=== PATIENT | female | born 1970 | race Caucasian/White ===

== ENCOUNTER 2023-04-05 11:18 | Outpatient (AMB) | payer OTHER, SELFPAY ==
--- NOTE | 2023-04-05 12:11 | MHC.OFFWIV ---
Intake Vital Signs 04/05/23 12:18 Height 5 ft 1 in Weight 114 lb BMI 21.5 BP 126/72 Blood Pressure Location Rt brachial Position Sitting Pulse 89 Pulse Source Pulse Oximeter Temp 97.3 F Temp Source Temporal Artery Scan Pulse Oximetry (%) 100 Oxygen Delivery Method Room Air Intake Visit Reasons: EP, rash on palm of right hand Intake Note: Pt is here c/o rash on right hand palm Patient Tobacco Use Status: Never used Tobacco Allergies amoxicillin [AMOXICILLIN] Allergy (Unknown, Unverified 04/05/23 12:16) SEIZURE penicillin V Allergy (Unknown, Verified 04/05/23 12:16) unknown Penicillins [PCN] Allergy (Unknown, Unverified 04/05/23 12:16) SEIZURE Sulfa (Sulfonamide Antibiotics) [SULFA(SULFONAMIDE ANTIBIOTICS)] Allergy (Unknown, Unverified 04/05/23 12:16) MARY SYNDROME Do you need a note to return to daycare/school/sports/work: No HPI HPI Comments History of Present Illness Details This is a 52-year-old female who presents to the office complaining of a painful rash on her right palm. Patient states she has a history of eczema, but this does not appear similar to her prior eczema rashes. She states this rash has been going on for several weeks. She denies any new or abnormal exposures to creams, lotions, soaps, or detergents. She denies any environmental exposures. She denies any fevers or chills. She is otherwise feeling well. [facility] Social History Patient Tobacco Use Status: Never used Tobacco Review of Systems Const All systems reviewed & are unremarkable except as noted in HPI and below Reports no additional complaints Eyes Reports no additional complaints ENT Reports no additional complaints Card Reports no additional complaints Resp Reports no additional complaints GI Reports no additional complaints Reports no additional complaints Musc Reports no additional complaints Skin/Breast Reports system reviewed and no additional complaints, except as documented Neuro Reports no additional complaints Psych Reports no additional complaints Endo Reports no additional complaints Chandan/Lymph Reports no additional complaints Aller/Immun Reports no additional complaints Physical Exam Vital Signs: Last Vital Signs Temp 97.3 F 04/05/23 12:18 Pulse 89 04/05/23 12:18 BP 126/72 04/05/23 12:18 Pulse Ox 100 04/05/23 12:18 Oxygen Delivery Method Room Air 04/05/23 12:18 BMI result Body Mass Index 21.5 Const Other: Vital signs reviewed. Constitutional: Non-toxic appearing. No acute distress. Well-developed and well-nourished. HEENT: Normocephalic and atraumatic. Tympanic membranes without erythema, edema, or bulging bilaterally. External auditory canals without erythema or edema bilaterally. Moist mucous membranes. No pharyngeal erythema or exudates. Skin: There are several areas of an erythematous maculopapular rash with scattered vesicles on the right palm. Neck: Full and painless range of motion. No cervical lymphadenopathy. Cardio: Regular rate. No lower extremity edema. No JVD. Pulmonary: No respiratory distress. No accessory muscle usage. Gastrointestinal: Soft, nontender, and nondistended in all 4 quadrants. Musculoskeletal: Normal range of motion in joints throughout the body. No deformity or other signs of injury. Neuro: Alert and oriented x4. Cranial nerves 2-12 grossly intact. No focal deficits appreciated. Psych: Normal mood and affect. Assessment & Plan Assessment & Plan (1) Dyshidrotic eczema: Code(s): L30.1 - Dyshidrosis [pompholyx] Plan: This is a 52-year-old female presenting to the office complaining of a painful and pruritic rash on her right palm. On physical examination, she has several areas of an erythematous maculopapular rash with scattered vesicles. Her physical exam is most consistent with a dyshidrotic eczema. Patient was sent home on high potency topical steroid cream with clobetasol 0.5% twice daily to the area. she was encouraged to call her primary care physician for a dermatology referral. Patient verbalizes her understanding and she is in agreement with the plan. Medications: New clobetasol 0.05% 1 appl topical BID 2 weeks 15 grams 0RF Coding Level of Care Code New Pt Level 3 (14113) Diagnoses Dyshidrotic eczema L30.1
[2023-04-05 12:18] VITALS: BP 126/72; PULSE 89; TEMP 36.3; O2SAT 100; BMI 21.5
== END 2023-04-05 12:51 | disposition home or self-care (01) ==
PROVIDERS: Visit Provider Physician Assistant Medical
DX: L30.1 Dyshidrosis [pompholyx] (principal)
CPT/HCPCS: 99203

== ENCOUNTER 2024-01-24 11:06 | Outpatient (REF) | payer OTHER, SELFPAY ==
[2024-01-24 13:11] LABS: MANUAL DIFF FLAG NO
[2024-01-24 13:45] LABS: Basophils Absolute Auto 0.1 X10*3/uL (0.0-0.2); Basophils Percent Auto 1.2 % (0-2); Eosinophils Absolute Auto 0.2 X10*3/uL (0.0-0.4); Eosinophils Percent Auto 3.3 % (0-4); Hematocrit 41.8 % (37.0-47.0); Imm Gran Abs Auto 0.02 X10*3/uL (0.00-0.03); Imm Gran Pct Auto 0.4 % (0.0-0.4); Lymphocytes Absolute Auto 1.5 X10*3/uL (1.2-4.9); Lymphocytes Percent Auto 28.7 % (20-40); Mean Corpuscular HGB Conc 33.5 g/dl (31.0-35.0); Mean Corpuscular Hemoglobin 29.5 pg (27.0-33.0); Mean Corpuscular Volume 88.2 fL (80.0-98.0); Mean Platelet Volume 11.8 fL (9.4-12.3); Monocytes Absolute Auto 0.3 X10*3/uL (0.1-1.2); Monocytes Percent Auto 6.4 % (2-11); Neutrophils Absolute Auto 3.1 x10*3/uL (2.0-8.3); Platelet Count 210 X10*3/uL (160-400); Red Blood Count 4.74 X10*6/uL (4.20-5.50); Red Cell Distribution Width 11.9 % (11.0-16.0); White Blood Count 5.2 X10*3/uL (4.8-10.8)
[2024-01-24 14:20] LABS: Rheumatoid Factor < 13.0 IU/mL (<15.0)
[2024-01-24 14:25] LABS: Alanine Aminotransferase 10 U/L (0-31); Albumin Level 4.2 g/dL (3.5-5.0); Alkaline Phosphatase 50 U/L (39-117); Anion Gap 9 (12-20); Aspartate Amino Transferase 17 U/L (5-31); Bilirubin Total 0.3 mg/dL (0.0-1.0); Blood Urea Nitrogen 14 mg/dL (9-16); C Reactive Protein < 0.10 mg/dL (< or = 0.50); Calcium 9.4 mg/dL (8.4-10.2); Carbon Dioxide 31 mmol/L (22-29); Chloride 105 mmol/L (96-108); Estimated Glomerular Filt Rate > 60; Glucose Random 91 mg/dL (60-115); Potassium 4.6 mmol/L (3.3-5.1); Sodium 140 mmol/L (135-145); Total Protein 6.9 g/dL (6.5-8.0)
[2024-01-24 14:27] LABS: Erythrocyte Sedimentation Rate 7 MM/HR (0-20)
[2024-01-24 15:13] LABS: Appearance Urine Clear; Color Urine Yellow; Glucose Urine UA Negative (Negative); Leukocyte Esterase Urine Negative (Negative); Nitrite Urine Negative (Negative); Specific Gravity - Urine 1.015 (1.005-1.025); Urine Blood Negative (Negative); Urine Ketones Negative (Negative); Urine Protein Negative (Neg-Trace)
[2024-01-24 15:19] LABS: Bacteria Urine None Seen (None Seen); Hyaline Casts Urine 0-2 /LPF (0-2); RBC Urine 0-2 /HPF (0-2); Squamous Epithelial Cell Urine 0-2 /HPF (0-2); WBC Urine 0-5 /HPF (0-5)
[2024-01-24 15:26] LABS: Creatinine Urine 82.32 mg/dL; Total Protein Urine Random 8 mg/dL (<12)
[2024-01-24 15:49] LABS: HBS Num1 137.45 mIU/mL (0-7.99); HBc Num1 0.08 S/CO (0.00-0.79); HBsAGNum1 0.34 S/CO (0.00-0.99); Hepatitis A Antibody IgM 0.29 Index (0-0.79); Hepatitis B Core Antibody Nonreactive (Nonreactive); Hepatitis B Surface Antigen Negative (Negative); ~HepC Num1 0.16 S/CO (0.00-0.79); ~Hepatitis A Antibody IgM Nonreactive (Nonreactive); ~Hepatitis B Surface Antibody REACTIVE (Nonreactive); ~Hepatitis C Antibody Nonreactive (Nonreactive)
[2024-01-27 10:22] LABS: Complement C3 124 mg/dL (83-193)
[2024-01-27 20:23] LABS: Anti DNA DS Antibody 2 IU/mL; Antibody to SS-A Antigen <1.0 NEG AI (<1.0 NEG); Antibody to SS-B Antigen <1.0 NEG AI (<1.0 NEG); SM/Ribonucleoprotein Ab <1.0 NEG AI (<1.0 NEG); Smith Protein <1.0 NEG AI (<1.0 NEG)
[2024-01-27 22:18] LABS: TS Negative Control Passed; TS Panel A 0; TS Panel B 0; TS Positive Control Passed; TSpotTB Negative (Negative)
[2024-01-27 22:37] LABS: Prot Elec - Albumin 4.2 g/dL (3.8-4.8); Prot Elec - Alpha1 0.3 g/dL (0.2-0.3); Prot Elec - Alpha2 0.6 g/dL (0.5-0.9); Prot Elec - Beta 1 0.4 g/dL (0.4-0.6); Prot Elec - Beta 2 0.3 g/dL (0.2-0.5); Prot Elec - Gamma 0.8 g/dL (0.8-1.7); Prot Elec - Total Protein 6.6 g/dL (6.1-8.1)
[2024-01-28 17:13] LABS: Cyclic Citrullinated Peptide <16 UNITS
[2024-01-28 18:22] LABS: IgA 217 mg/dL (47-310); IgG 838 mg/dL (600-1640); IgM 155 mg/dL (50-300)
[2024-01-29 07:29] LABS: Anti Nuclear Antibody Screen POSITIVE (NEGATIVE); Anti Nuclear Antibody Titer 1:40 titer
[2024-01-30 05:45] LABS: DNAds, Crithidia Antibody Negative (Negative)
[2024-02-02 18:09] LABS: Centromere Protein A Ab <11 SI (<11); Centromere Protein B Ab <11 SI (<11); Fibrillarin Ab <11 SI (<11); PM SCL 100 Ab <11 SI (<11); PM SCL 75 Ab <11 SI (<11); RNA Polymerase III RP11 Ab <11 SI (<11); RNA Polymerase III RP155 Ab <11 SI (<11); SCL-70 Extractable Nuclear Ab <11 SI (<11); Th-To Ab <11 SI (<11); U1 SNRNP RNP 70KD <11 SI (<11); U1 SNRNP RNP A <11 SI (<11); U1 SNRNP RNP C <11 SI (<11)
== END 2024-01-24 11:07 | disposition home or self-care (01) ==
LOC: HO.LAB 11:06
PROVIDERS: PCP Internal Medicine; Visit Provider Student in an Organized Health Care Education/Training Program
DX: M35.01 Sjogren syndrome with keratoconjunctivitis (principal); M32.9 Systemic lupus erythematosus, unspecified; M06.9 Rheumatoid arthritis, unspecified; Z11.59 Encounter for screening for other viral diseases; Z11.7 Encounter for testing for latent tuberculosis infection; M34.9 Systemic sclerosis, unspecified
CPT/HCPCS: 36415; 80053; 81001; 82570; 82784; 84156; 84165; 84182; 85025; 85652; 86038; 86039; 86140; 86160; 86200; 86225; 86235; 86255; 86334; 86431; 86481; 86704; 86706; 86709; 86803; 87340; 99202

== ENCOUNTER 2024-01-24 11:06 | Outpatient (AMB) | payer OTHER, SELFPAY ==
--- NOTE | 2024-01-24 11:17 | A.OFFVIS_ITS ---
Vital Signs 01/24/24 11:32 Height 5 ft 1 in Weight 124 lb 1.924 oz BMI 23.4 BP 115/72 Blood Pressure Location Lt brachial Position Sitting Pulse 80 Pulse Source Pulse Oximeter Pulse Oximetry (%) 96 Oxygen Delivery Method Room Air Intake Visit Reasons: Sjogren's Intake Note: Patient presents for Sjogren's. Feel pain everywhere. 25 plus years. No medication work. Allergies amoxicillin [AMOXICILLIN] Allergy (Unknown, Verified 01/24/24 11:22) SEIZURE penicillin V Allergy (Unknown, Verified 01/24/24 11:22) unknown Penicillins [PCN] Allergy (Unknown, Verified 01/24/24 11:22) SEIZURE Sulfa (Sulfonamide Antibiotics) [SULFA(SULFONAMIDE ANTIBIOTICS)] Allergy (Unknown, Verified 01/24/24 11:22) MARY SYNDROME hydroxychloroquine Allergy (Verified 01/24/24 11:48) Gastrointestinal Upset paxlovid Allergy (Severe, Uncoded 01/24/24 11:23) Vomiting Medication List - Last Reconciled 01/24/24 by Jose Lynne MD acyclovir 5% 1 appl topical Q4H azelaic acid 15% 1 appl topical BID betamethasone dipropionate 0.05% 1 appl topical BID clonazepam mg PO hydroxyzine HCl 25 mg PO BID ibuprofen 800 mg PO TID loratadine 10 mg PO DAILY mirtazapine 7.5 mg PO BEDTIME paroxetine HCl 40 mg PO DAILY pilocarpine HCl 5 mg PO TID PRN valacyclovir 1,000 mg PO DAILY HPI Comments Details: This is a 53-year-old female who presents for evaluation of Sjogren's. She st ates that around 2005 she started having rashes on her face. She was started on hydroxychloroquine. A gave her GI upset, vomiting, skin rashes. A few years later, she was having dryness of her mouth, eyes, she also stated that she had decreased sweating even under her armpits. At that time she was diagnosed with Sjogren's. She was evaluated by Dr. Martinez. Started on pilocarpine which did help the dryness. She was also on Restasis. Over the years she was diagnosed with rheumatoid arthritis as well. She does not recall any specific treatment for it. She was last evaluated by a elevator examiner and adjuster around 2014. Her main complaint is diffuse pains. She gets intermittent swelling of her joints. She is also complaining of dry mouth, dry eyes. Does not recall any specific treatment for it. She states that she continues to have diffuse pains. She denies any recent skin rashes, weight loss, unexplained fevers. She denies any history of DVT/PE. [facility] Medical History Vitamin D deficiency B12 deficiency Sjogrens syndrome Rheumatoid arthritis PTSD (post-traumatic stress disorder) Lupus Learning disability Fibromyalgia Depression Anxiety ADHD Surgical History H/O breast augmentation H/O: hysterectomy Family History Maternal Grandfather Parkinson disease Rheumatoid arthritis Mother No problems noted. Daughter Rheumatoid arthritis Social History Household Members: Other Housing: House Alcohol intake: never Patient Tobacco Use Status: Never used Tobacco Review of Systems Const Denies fever(s) and Denies weight loss Eyes Reports dry eyes ENT Reports dry mouth Resp Reports no additional complaints Musc Reports arthralgias Physical Exam Vital Signs: Last Vital Signs Pulse 80 01/24/24 11:32 BP 115/72 01/24/24 11:32 Pulse Ox 96 01/24/24 11:32 Oxygen Delivery Method Room Air 01/24/24 11:32 BMI result Body Mass Index 23.4 Const General: cooperative, healthy appearing and comfortable Nutritional Appearance: average body habitus Orientation/consciousness: patient oriented x3 Limitations: no limitations HEENT Other: Dry mouth Subtle telangiectasia on lower lip Resp Effort & Inspection: normal respiratory effort and able to speak in complete sentences Auscultation: clear to auscultation bilaterally Cardio Rate: regular rate Rhythm: regular rhythm Skin Other: Very subtle rashes on forehead Neuro General: patient oriented x3 Extrem Other: No active synovitis Normal nailfold capillaroscopy Results Reviewed Results Reviewed: US SOFT TISSUE HEAD/NECK Exam Date: 08/13/2023 4:56 PM Ordering Diagnosis: Neck fullness ? EXAM: Ultrasound head/neck soft tissue ? HISTORY: Neck fullness. History of Sjogren's syndrome. ? COMPARISON: None ? FINDINGS: ? Patient delineated the area of bilateral neck fullness in the bilateral submandibular regions. Submandibular glands appear within normal limits for size and are homogeneous. No focal submandibular lesion identified. No glandular calcifications. No lymph nodes identified. ? IMPRESSION IMPRESSION: ? No sonographic abnormality identified in the areas of neck fullness. Assessment & Plan Assessment & Plan (1) Sjogrens syndrome: Code(s): M35.00 - Sjogren syndrome, unspecified Category: Medical Qualifiers: Sjogren organ or system involvement: keratoconjunctivitis Qualified Code(s): M35.01 - Sjogren syndrome with keratoconjunctivitis Plan: This is a 53-year-old female previously diagnosed with SLE, Sjogren's and RA who presents for follow-up. She has not seen a elevator examiner and adjuster for then 7 years. On exam she has dry mouth. I will order comprehensive serology to better understand her underlying autoimmune rheumatic disease. For dryness, start pilocarpine. Discussed Risks and benefits of it. Advised patient to use [id number] Biotene mouthwash/spray. Use Biotene toothpaste Advised patient to establish care with an business office specialist for dry eyes Follow-up in 6-8 weeks Plan I spent 48 minutes reviewing patient's chart, evaluating patient, ordering diagnostic workup, counseling patient and documenting in the chart Orders: Orders ENIO Reflex Titer and Pattern Today M32.9 - Systemic lupus erythematosus, unspecified Anti DNA DS Antibody Today M32.9 - Systemic lupus erythematosus, unspecified Complement C4 Today M32.9 - Systemic lupus erythematosus, unspecified Comprehensive Met. Panel Today M32.9 - Systemic lupus erythematosus, unspecified Rheumatoid Factor Today M06.9 - Rheumatoid arthritis, unspecified Scleroderma 12 Panel Today M34.9 - Systemic sclerosis, unspecified Anti Extractable Nuclear Ag Today M32.9 - Systemic lupus erythematosus, unspecified Complement C3 Today M32.9 - Systemic lupus erythematosus, unspecified C Reactive Protein Today M32.9 - Systemic lupus erythematosus, unspecified DNA Double Stranded-Crithidia Today M32.9 - Systemic lupus erythematosus, unspecified Erythrocyte Sedimentation Rate Today M32.9 - Systemic lupus erythematosus, unspecified Protein Creatinine Ratio, Ur Today M32.9 - Systemic lupus erythematosus, unspecified Sjogren's Antibodies Today M32.9 - Systemic lupus erythematosus, unspecified UA w Microscopic Today M32.9 - Systemic lupus erythematosus, unspecified Complete Blood Count Auto Diff Today M32.9 - Systemic lupus erythematosus, unspecified Hepatitis A,B,C Profile Today Z11.59 - Encounter for screening for other viral diseases Immunofixation Pnl, Serum Today M32.9 - Systemic lupus erythematosus, unspecified Protein Electrophoresis, Serum Today M32.9 - Systemic lupus erythematosus, unspecified T Spot TB Today Z11.7 - Encounter for testing for latent tuberculosis infection Cyclic Citrullinated Peptide Today M06.9 - Rheumatoid arthritis, unspecified Medications: New pilocarpine HCl 5 mg PO TID PRN 90 tabs 1RF dryness Coding Level of Care Code New Pt Level 4 (95172) Diagnoses Sjogren's syndrome with keratoconjunctivitis sicca M35.01 Sjogren organ or system involvement: keratoconjunctivitis
[2024-01-24 11:32] VITALS: BP 115/72; PULSE 80; O2SAT 96; BMI 23.4
== END 2024-01-24 12:01 | disposition home or self-care (01) ==
PROVIDERS: PCP Internal Medicine; Visit Provider Student in an Organized Health Care Education/Training Program
DX: M35.01 Sjogren syndrome with keratoconjunctivitis (principal)
CPT/HCPCS: 99204

== ENCOUNTER 2024-06-02 14:26 | Outpatient (AMB) | payer OTHER, SELFPAY ==
[2024-06-02 15:07] VITALS: BP 114/76; PULSE 93; TEMP 37.4; O2SAT 97
--- NOTE | 2024-06-02 15:07 | MHC.OFFWIV ---
Intake Vital Signs 06/02/24 15:07 Weight 121 lb BP 114/76 Blood Pressure Location Rt brachial Position Sitting Pulse 93 Pulse Source Pulse Oximeter Temp 99.4 F Temp Source Oral Pulse Oximetry (%) 97 Oxygen Delivery Method Room Air Intake Visit Reasons: EP-cough, chest congestion, ribcage pain, sob Intake Note: Patient here for cough that has been present for about 3 weeks Patient Tobacco Use Status: Never used Tobacco Allergies amoxicillin [AMOXICILLIN] Allergy (Unknown, Verified 06/02/24 15:08) SEIZURE penicillin V Allergy (Unknown, Verified 06/02/24 15:08) unknown Penicillins [PCN] Allergy (Unknown, Verified 06/02/24 15:08) SEIZURE Sulfa (Sulfonamide Antibiotics) [SULFA(SULFONAMIDE ANTIBIOTICS)] Allergy (Unknown, Verified 06/02/24 15:08) MARY SYNDROME hydroxychloroquine Allergy (Verified 06/02/24 15:08) Gastrointestinal Upset paxlovid Allergy (Severe, Uncoded 06/02/24 15:08) Vomiting HPI HPI Comments History of Present Illness Details This is a 53-year-old female with a past medical history of lupus, anxiety and depression presenting for evaluation of a cough, headache and decreased appetite that she has had for the past 3 weeks. 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 Patient states that both her boyfriend and her boyfriend's mother have had similar symptoms. Patient states she has poor sleep secondary to her cough however has been taking hydroxyzine at bedtime for relief. Patient has also been using an [id number] cough syrup as needed. She denies having any overt fevers, chest pain, shortness breath, nausea, vomiting or diarrhea. [facility] Medical History (Updated 06/02/24 @ 15:48 by Jessi Kathleen PA-C) Rheumatoid arthritis Vitamin D deficiency B12 deficiency Sjogrens syndrome PTSD (post-traumatic stress disorder) Lupus Learning disability Fibromyalgia Depression Anxiety ADHD Surgical History H/O breast augmentation H/O: hysterectomy Family History Maternal Grandfather Parkinson disease Rheumatoid arthritis Mother No problems noted. Daughter Rheumatoid arthritis Social History Household Members: Other Housing: House Alcohol intake: never Patient Tobacco Use Status: Never used Tobacco Review of Systems Const All systems reviewed & are unremarkable except as noted in HPI and below Reports body aches, Denies chills, Reports fatigue, Denies fever(s), Reports headache(s), Reports lethargy, Reports poor appetite and Reports weakness Eyes Reports no additional complaints ENT Reports no additional complaints and Reports headache(s) Card Denies chest pain, Denies irregular heart rhythm and Denies dyspnea Resp Denies chest congestion, Reports cough, Denies dyspnea and Denies wheezing GI Denies no additional complaints, Denies diarrhea, Denies nausea and Denies vomiting Reports no additional complaints Musc Reports no additional complaints Skin/Breast Reports as per HPI Neuro Reports no additional complaints, Reports headache(s) and Reports weakness Psych Reports no additional complaints Endo Reports no additional complaints and Reports fatigue Chandan/Lymph Reports no additional complaints Aller/Immun Reports no additional complaints and Denies wheezing Physical Exam Vital Signs: Last Vital Signs Temp 99.4 F 06/02/24 15:07 Pulse 93 06/02/24 15:07 BP 114/76 06/02/24 15:07 Pulse Ox 97 06/02/24 15:07 Oxygen Delivery Method Room Air 06/02/24 15:07 Const General: cooperative, comfortable, well developed, alert, awake, Physically active and tired appearing; No acute distress Nutritional Appearance: average body habitus Orientation/consciousness: patient oriented x3 Limitations: no limitations HEENT Head: Yes normal to inspection and Yes normocephalic Ears: hearing grossly normal bilaterally, external ears normal, TM's normal bilaterally and EAC's normal General nose exam: Normal external nose present Face and sinus: Yes normal facial exam and Yes sinuses nontender Mouth: Normal oral and palatal mucosa present Throat: Yes posterior oropharynx normal and No postnasal drainage Eyes General: appearance normal, both eyes and all related structures Conjunctivae: conjunctivae normal EOM: EOMs intact bilaterally Neck Lymphatic: no lymphadenopathy noted Resp Effort & Inspection: normal respiratory effort, able to speak in complete sentences, normal respiratory pattern, no audible wheezes, no cough, no nasal flaring and not tachypneic Auscultation: clear to auscultation bilaterally Cardio Rate: regular rate Rhythm: regular rhythm Skin General skin exam: no rashes or lesions noted Neuro General: patient oriented x3 Psych Appearance: grossly normal Mental Status: mental status grossly normal Insight: Good insight present (Psych) Judgement: Good judgement present (Psych) Assessment & Plan Assessment & Plan (1) Acute upper respiratory infection: Comment: SARS panel ordered and results are pending. Code(s): J06.9 - Acute upper respiratory infection, unspecified Plan: Ibuprofen or Tylenol as needed for discomfort. Mucinex OTC, hot tea with honey and continue hydroxyzine at bedtime as needed. Orders: Orders SARS-CoV2/FLU/RSV Today J06.9 - Acute upper respiratory infection, unspecified Coding Level of Care Code Est Pt Level 3 (56772) Diagnoses Acute upper respiratory infection J06.9 Time Spent (min) 20
--- OUTSIDE RECORDS SUMMARY | 2024-06-02 15:19 | XMS_ITS | Clinical Summary ---
Author Organization [address] Address [address] [place] [phone] Phone Care Team Providers Care Multicultural Manager Name Role Phone Keiry Sher MD Primary Care Provider [phone] Allergies Active Allergy Reactions Criticality Noted Date Comments Amoxicillin 03/20/2017 Nirmatrelvir-Ritonavir Hallucinations Penicillins 03/20/2017 Pilocarpine Other 02/18/2024 Rapid heart beat , Sulfa (Sulfonamide Antibiotics) 03/20/2017 Medications Medication Sig Dispensed Refills Start Date End Date Status valACYclovir (VALTREX) 1 gram tablet Take 1 tablet (1,000 mg total) by mouth 1 (one) time each day. TAKE 1 TABLET BY MOUTH DAILY FOR 5 DAYS AT ONSET OF SYMPTOMS 60 tablet 03/25/2024 Active acyclovir (ZOVIRAX) 5 % ointment Every 3 hours while awake. 12/03/2023 11/27/2024 Active betamethasone, augmented, (DIPROLENE-AF) 0.05 % cream PLEASE SEE ATTACHED FOR DETAILED DIRECTIONS 07/29/2023 Active calcipotriene (DOVONEX) 0.005 % cream APPLY TWICE DAILY TO THE HANDS NEEDED. CAN MIX WITH BETAMETHASONE. 07/29/2023 Active cholecalciferol (VITAMIN D-3) 25 mcg (1,000 unit) tablet Take 1,000 Units by mouth daily. Active clonazePAM (KlonoPIN) 0.5 mg tablet Take 0.5 mg by mouth 2 times daily. Active diclofenac (VOLTAREN) 1 % topical gel Apply 1 Applicator topically 2 times daily as needed (Heel pain). 02/18/2024 Active hydrOXYzine HCL (ATARAX) 25 mg tablet TAKE 1-2 TABLETS DAILY AT BEDTIME NEEDED FOR INSOMNIA 07/17/2023 Active PARoxetine (PAXIL) 40 mg tablet Take 1 tablet (40 mg total) by mouth 1 (one) time each day in the morning. Active Active Problems Problem Noted Date Diagnosed Date ADHD 12/04/2022 Learning disability 12/04/2022 Overview (03/19/2024): discalcula Anxiety disorder 12/04/2022 PTSD (post-traumatic stress disorder) 12/04/2022 B12 deficiency 12/04/2022 Depression 12/04/2022 Fibromyalgia 12/04/2022 Lupus (systemic lupus erythematosus) 12/04/2022 Rheumatoid arthritis 12/04/2022 Sjogren's syndrome 12/04/2022 Vitamin D deficiency 12/04/2022 Encounters Date Type Department Care Team Description 03/29/2024 Telephone Adult Medicine [address] [phone] Keiry Sher MD Information Requested from Last 3 Months Surgical History Surgery Date Site/Laterality Comments HYSTERECTOMY 04/2020 PROCEDURE: HISTORICAL HYSTERECTOMY; COMMENT: robotic OTHER SURGICAL HISTORY PROCEDURE: HISTORICAL UNSPECIFIED SURGERY; COMMENT: breast augmentation Medical History Medical History Date Comments Anxiety disorder DX:Anxiety diso rder PTSD (post-traumatic stress disorder) DX:PTSD (post-traumatic stress disorder) Depression DX:Depression Adhd DX:ADHD Lupus (systemic lupus erythe matosus) ([facility]) DX:Lupus (systemic lupus sami thematosus) ([facility]) Fibromyalgia DX:Fibromyalgia Sjogren's syndrome ([facility]) DX: Sjogren's syndrome ([facility]) Learning disability DX:Learning disability; COMMENT: discalcula Rheumatoid arthritis ([facility]/HCC) D X:Rheumatoid arthritis ([facility]) Family History Medical History Relation Name Comments Hypertension Brother No Known Problems Father Parkinson's Disease Maternal Grandfather Rheum arthritis Maternal Grandfather Hypertension Mother Other: hyrdocephaly Mother No Known Problems Paternal Grandfather No Known Problems Sister Relation Name Status Comments Brother Daughter Alive Father Maternal Grandfather Mother Paternal Grandfather Paternal Grandmother Sister Social History Tobacco Use Types Packs/Day Years Used Date Smoking Tobacco: Every Day Cigarettes 0.5 43.1 Started: 05/06/1981 Smokeless Tobacco: Never Alcohol Use Standard Drinks/Week Comments Yes 0 (1 standard drink = 0.6 oz pur e alcohol) Sex and Gender Information Value Date Recorded Sex Assigned at Not on file Gender Identity Not on file Sexual Orientation Not on file Job Start Date Occupation Industry Not on file Not on file Not on file Obstetrics History Last Filed Vital Signs Vital Sign Reading Time Taken Comments Blood Pressure 104/64 03/02/2024 2:49 PM EDT Pulse 80 03/02/2024 2:49 PM EDT Temperature - - Respiratory Rate - - Oxygen Saturation - - Inhaled Oxygen Concentration - - Weight 56.7 kg (125 lb) 03/02/2024 2:49 PM EDT Height 157.5 cm (5' 2 ) 03/02/2024 2:49 PM EDT Body Mass Index 22.86 03/02/2024 2:49 PM EDT Plan of Treatment Upcoming Encounters Date Type Department Care Team (Late st Contact Info) Description 06/09/2024 1:30 PM EST Consult Urogynecology [address] [phone] Marissa Cowan MD [address] [place] [address] [address] [place] [address] Health Maintenance Due Date Last Done Comments Breast Cancer Screening 1970 Pneumococcal Vaccine: Pediatrics (0 to 5 Years) and At-Risk Patients (6 to 64 Years) (1 of 2 - PCV) 1977 DTaP,Tdap,and Td Vaccines (1 - Tdap) 1990 Hepatitis B Vaccines (1 of 3 - 19+ 3-dose series) 1990 Cervical Cancer Screening: P ap Smear 03/21/2020 03/21/2017, 03/21/2017 Zoster Vaccines (1 of 2) 2021 Colorectal Cancer Screening: Colonoscopy 04/08/2022 HIV Screening 04/08/2022 Hepatitis C Screening 04/08/2022 Social Influencers of Health Screening 04/08/2022 COVID-19 Vaccine (1 - 2023-2 5 season) 2024 Influenza Vaccine (#1) 2024 Depression Screening 12/01/2024 12/02/2023 Lung Cancer Screening (Low Dose CT) 01/22/2025 01/23/2024, 01/22/2024 Cholesterol Screening (Lipid Panel) 12/05/2027 12/04/2022 HIB Vaccines Aged Out No longer eligi ble based on patient's age to complete this topic HPV Vaccines Aged Out No longer eligi ble based on patient's age to complete this topic Hepatitis A Vaccines Aged Out No long er eligible based on patient's age to complete this topic IPV Vaccines Aged Out No longer eligi ble based on patient's age to complete this topic MMR Vaccines Aged Out No longer eligi ble based on patient's age to complete this topic Meningococcal ACWY Vaccine Aged Out N o longer eligible based on patient's age to complete this topic RSV Immunization Patients Under 20 months Aged Out No longer eligible b ased on patient's age to complete this topic Varicella Vaccines Aged Out No longer eligible based on patient's age to complete this topic Procedures Procedure Name Priority Date/Time Associated Diagnosis Comments CT LUNG SCREENING LOW DOSE Routine 01/23/2024 1:41 PM EDT Encounter for screening for malignant neoplasm of respiratory organs DEPRESSION SCREENING Routine 12/02/2023 LIPID PANEL Routine 12/04/2022 HPV Routine 03/21/2017 from Last 3 Months or Most Recently Relevant to Health Maintenance Results * CT LUNG SCREENING LOW DOSE (01/23/2024 1:41 PM EDT) Anatomical Region Laterality Modality Computed Tomogra phy 01/22/2024 2:06 PM EDT Narrative 01/23/2024 1:41 PM EDT [facility] Diagnostic Imaging Department [address] [place] [address] Patient: ??BECKA JIMENEZ ?/Age/Sex: 1970 - 53 - F Unit#: ??[id number] ? Location/Status: ??SPDICATLS/REG CLI ? Mnemonic/Ordering Site: ??CTLUNGLD/SPCT Ordering Physician: ??PAULA ROBERTS MD CT Lung Screening Low Dose - 01/22/24 - 1416 Report Status:Signed Chest CT, 01/23/2024 12:23 PM. TECHNIQUE: Low-dose CT of the chest without intravenous contrast administration. ??Coronal and sagittal reformats and MIP reconstructions were created. Dose length product: ??112 mGy-cm. HISTORY: LOW DOSE LUNG SCREENING COMPARISON: 03/03/2018. FINDINGS: Lungs/pleura: Central airways are clear and normal in caliber. ??No endobronchial nodule. ??There are a few scattered 1--2 mm calcified and noncalcified pulmonary nodules. ??No suspicious nodule or mass. ??No pleural effusion or pneumothorax. Mediastinum/theron: No mediastinal mass or lymphadenopathy. ??No appreciable hilar lymphadenopathy on limited noncontrast evaluation. Vasculature: Minimal atherosclerotic calcifications. ??Normal caliber pulmonary arteries. Cardiac: Normal. ??No coronary artery calcification. Chest wall: Breast implants. Limited abdomen: Normal. Bones: Mild degenerative changes of the spine. IMPRESSION: Lung RADS 2. ??Guidelines recommend repeat low-dose screening CT in 12 months. Dictating Physician: ??HIRAM GUAJARDO MD Electronically Signed by: ??HIRAM GUAJARDO MD Dic Date/Time: ??01/23/24 1223 Sign date/Time: ??01/23/24 1341 Procedure Note Hiram Guajardo MD - 02/19/2024 [facility] Diagnostic Imaging Department [address] [place] [id number] Patient: BECKA JIMENEZ /Age/Sex: 1970 - 53 - F Unit#: [id number] Location/Status: SPDICATLS/REG CLI Mnemonic/Ordering Site: CTLUNG/SPCT Ordering Physician: PAULA ROBERTS MD CT Lung Screening Low Dose - 01/22/24 - 1416 Report Status:Signed Chest CT, 01/23/2024 12:23 PM. TECHNIQUE: Low-dose CT of the chest without intravenous contrast administration. Coronal and sagittal reformats and MIP reconstructionswere created. Dose length product: 112 mGy-cm. HISTORY: LOW DOSE LUNG SCREENING COMPARISON: 03/03/2018. FINDINGS: Lungs/pleura: Central airways are clear and normal in caliber. No endobronchial nodule. There are a few scattered 1--2 mm calcified and noncalcified pulmonary nodules. No suspicious nodule or mass. Nopleural effusion or pneumothorax. Mediastinum/theron: No mediastinal mass or lymphadenopathy. No appreciablehilar lymphadenopathy on limited noncontrast evaluation. Vasculature: Minimal atherosclerotic calcifications. Normal caliberpulmonary arteries. Cardiac: Normal. No coronary artery calcification. Chest wall: Breast implants. Limited abdomen: Normal. Bones: Mild degenerative changes of the spine. IMPRESSION: Lung RADS 2. Guidelines recommend repeat low-dose screening CT in 12months. Dictating Physician: HIRAM GUAJARDO MD Electronically Signed by: HIRAM GUAJARDO MD Dic Date/Time: 01/23/24 1223 Sign date/Time: 01/23/24 1341 Paula Roberts MD IMG CT PROCEDURES * Depression Screening (12/02/2023) Pathologist [facility] Depression Screening abstracted Historical Provider MD RAMON STORM E * (ABNORMAL) Lipid panel (12/04/2022) [facility] LDL/HDL Ratio 4 0 - 4 Triglycerides 138 0 - 150 mg/dL Cholesterol 204(A) 0 - 200 mg/dL HDL 58 40 mg/dL LDL Cholesterol 119(A) 0 - 100 mg/dL Blood Venous blood specimen / Unknown Historical Provider LAB BLOOD ORDERAB LES * Cervical Cancer Screening: HPV (03/21/2017) [facility] Cervical Cancer Screening: HPV negative, abstracted Historical Provider MD RAMON Pacheco from Last 3 Months or Most Recently Relevant to Health Maintenance Care Teams Multicultural Manager Relationship Specialty Start Date End Date Keiry Sher MD [address] [place] [phone] PCP - General Internal Medicine 04/12/24
== END 2024-06-02 16:02 | disposition home or self-care (01) ==
PROVIDERS: PCP Internal Medicine; Visit Provider Physician Assistant
DX: J06.9 Acute upper respiratory infection, unspecified (principal)

== ENCOUNTER 2024-06-02 14:26 | Outpatient (REF) | payer OTHER, SELFPAY ==
[2024-06-03 11:39] LABS: Influenza A PCR POSITIVE (Negative); Influenza B PCR NEGATIVE (Negative); Resp Syncy Virus RNA Qual PCR NEGATIVE (Negative); SARS COV2 PCR INHOUSE NEGATIVE (Negative)
--- OUTSIDE RECORDS SUMMARY | 2024-06-03 12:43 | XMS_ITS | Clinical Summary ---
Author Organization [address] Address [address] [place] [phone] Phone Care Team Providers Care Track Equipment Operator Name Role Phone Keiry Sher MD Primary Care Provider [phone] Allergies Active Allergy Reactions Criticality Noted Date Comments Amoxicillin 03/20/2017 Nirmatrelvir-Ritonavir Hallucinations 3 Penicillins 03/20/2017 Pilocarpine Other 02/18/2024 Rapid heart [...] Care Team Description 03/29/2024 Telephone Adult Medicine [address] [phone] Keiry Sher MD Information Requested from Last 3 Months Surgical History Surgery Date Site/Laterality Comments HYSTERECTOMY 04/2020 PROCEDURE: HISTORICAL HYSTERECTOMY; COMMENT: robotic OTHER SURGICAL HISTORY PROCEDURE: HISTORICAL UNSPECIFIED SURGERY; COMMENT: breast augmentation Medical History Medical History Date Comments Anxiety disorder DX:Anxiety diso rder PTSD (post-traumatic stress disorder) DX:PTSD (post-traumatic stress disorder) Depression DX:Depression Adhd DX:ADHD Lupus (systemic lupus erythe matosus) ([facility]/HCC) DX:Lupus (systemic lupus sami thematosus) ([facility]) Fibromyalgia DX:Fibromyalgia Sjogren's syndrome ([facility]) DX: Sjogren's syndrome ([facility]) Learning disability DX:Learning disability; COMMENT: discalcula Rheumatoid arthritis ([facility]/HCC) D X:Rheumatoid arthritis ([facility]) Family History Medical History Relation Name Comments [...] Description 06/09/2024 1:30 PM EST Consult Urogynecology [address] [phone] Marissa Cowan MD [address] [place] [address] [address] [place] [address] Health Maintenance Due Date Last Done Comments [...] PM EDT Narrative 01/23/2024 1:41 PM EDT [facility] Diagnostic Imaging Department [address] [place] [id number] Patient: ??BECKA JIMENEZ ?/Age/Sex: 1970 - 53 - F Unit#: ??[id number] ? Location/Status: ??SPDICATLS/REG CLI ? Mnemonic/Ordering Site: [...] Procedure Note Hiram Guajardo MD - 02/19/2024 [facility] Diagnostic Imaging Department [address] [place] [id number] Patient: BECKA JIMENEZ /Age/Sex: 1970 - 53 - F Unit#: [id number] Location/Status: SPDICATLS/REG CLI Mnemonic/Ordering Site: CTLUNG/SPCT Ordering [...] CT PROCEDURES * Depression Screening (12/02/2023) Pathologist [facility] Depression Screening abstracted Historical Provider MD RAMON STORM E * (ABNORMAL) Lipid panel (12/04/2022) [facility] LDL/HDL Ratio 4 0 - 4 Triglycerides 138 0 - 150 mg/dL Cholesterol 204(A) 0 - 200 mg/dL HDL 58 40 mg/dL LDL Cholesterol 119(A) 0 - 100 mg/dL Blood Venous blood specimen / Unknown Historical Provider LAB BLOOD ORDERAB LES * Cervical Cancer Screening: HPV (03/21/2017) [facility] Cervical Cancer Screening: HPV negative, abstracted Historical Provider MD RAMON Pacheco from Last 3 Months or Most Recently Relevant to Health Maintenance Care Teams Track Equipment Operator Relationship Specialty Start Date End Date Keiry Sher MD [address] [place] [phone] PCP - General Internal Medicine 04/12/24
== END 2024-06-02 14:27 | disposition home or self-care (01) ==
LOC: HO.LNP 14:26
PROVIDERS: Physician Assistant; PCP Internal Medicine; Visit Provider Internal Medicine
DX: J06.9 Acute upper respiratory infection, unspecified (principal)
CPT/HCPCS: 0241U; 99212

== ENCOUNTER 2025-03-25 13:22 | Outpatient (AMB) | payer OTHER, SELFPAY ==
[2025-03-25 13:33] VITALS: BP 112/74; PULSE 86; TEMP 36.8; O2SAT 97; BMI 23.9
--- NOTE | 2025-03-25 13:33 | AM.OFFWIN_ITS ---
Intake Vital Signs 03/25/25 13:33 Height 5 ft 1 in Weight 126 lb 8 oz BMI 23.9 BP 112/74 Blood Pressure Location Lt brachial Position Sitting Pulse 86 Pulse Source Pulse Oximeter Temp 98.2 F Temp Source Oral Pulse Oximetry (%) 97 Oxygen Delivery Method Room Air Intake Visit Reasons: EP-stomach ache, constipation Intake Note: pt presents with constipation for 3 weeks with very little stool output only for a couple days, stomach ache/cramps, minimal bloody matter in stool. eye tenderness/pressure and itchiness. sample from this morning brought into office- worries for worm in stool. Patient Tobacco Use Status: Never used Tobacco Allergies amoxicillin (AMOXICILLIN) Allergy (Unknown, Verified 06/02/24 15:08) SEIZURE Penicillins (PCN) Allergy (Unknown, Verified 06/02/24 15:08) SEIZURE Sulfa (Sulfonamide Antibiotics) (SULFA(SULFONAMIDE ANTIBIOTICS)) Allergy (Unknown, Verified 06/02/24 15:08) MARY SYNDROME hydroxychloroquine Allergy (Verified 06/02/24 15:08) Gastrointestinal Upset nirmatrelvir (From Paxlovid) Adverse Reaction (Severe, Verified 03/25/25 13:39) Vomiting Do you need a note to return to daycare/school/sports/work: No HPI HPI Comments History of Present Illness Details History of Present Illness - The patient is a 54 year old individua l presenting with constipation and concerns about a possible intestinal parasitic infection. - Constipation has persisted for over th ree weeks, with associated symptoms of bloating and abdominal discomfort. - The patient has attempted various inte rventions including suppositories, enemas, and magnesium citrate, with limited success. - She had a small semi-soft BM yesterday and brought a sample with her today. - Insurance does not cover the only effe ctive medication, which is costly. - A rectocele has been diagnosed, and talley rgical intervention was considered but deemed not beneficial due to the risk of recurrence. - The patient suspects an intestinal par asitic infection due to observing stringy objects in the stool, although no movement was noted. - She has had an appetite and has been a ble to eat and drink. - She has no recent travel or exposures. - She has no diet changes, nausea, vomit ing, fever, chills, diarrhea, melena or hematochezia. - She has no weight loss or weight gain. - The patient has a history of recent co lonoscopy with normal findings and is under the care of a internal medicine nurse practitioner. Physical Exam General: Cooperative, healthy appearing, comfortable, no acute distress and well developed Orientation: Patient oriented x3 Limitations: No limitations Respiratory: Normal respiratory effort and able to speak in complete sentences. Clear to auscultation bilaterally. No w/r/r noted. Cardiovascular: Regular rate and rhythm. Normal S1 and S2. No m/r/g noted. GI: Normal to inspection. Hypoactive BS noted. Soft to palpation, mildly distended. No TTP of all 4 quadrants. No guarding noted. No Rovsing noted. Neg Verdugo's. Negative CVA tenderness noted. Skin: No rashes or lesions noted Neuro: Patient oriented x3 Patient was informed and verbally consented to the use of an ambient scribe for clinic note documentation during this visit. [facility] Medical History (Updated 06/02/24 @ 15:48 by Jessi Faulkner PA-C) Rheumatoid arthritis Vitamin D deficiency B12 deficiency Sjogrens syndrome PTSD (post-traumatic stress disorder) Lupus Learning disability Fibromyalgia Depression Anxiety ADHD Surgical History H/O breast augmentation H/O: hysterectomy Family History Maternal Grandfather Parkinson disease Rheumatoid arthritis Mother No problems noted. Daughter Rheumatoid arthritis Social History Household Members: Other Housing: House Alcohol intake: never Patient Tobacco Use Status: Never used Tobacco Review of Systems Const All systems reviewed & are unremarkable except as noted in HPI and below Physical Exam Vital Signs: Last Vital Signs Temp 98.2 F 03/25/25 13:33 Pulse 86 03/25/25 13:33 BP 112/74 03/25/25 13:33 Pulse Ox 97 03/25/25 13:33 Oxygen Delivery Method Room Air 03/25/25 13:33 BMI result Body Mass Index 23.9 Assessment & Plan Assessment & Plan (1) Constipation: Code(s): K59.00 - Constipation, unspecified Qualifiers: Constipation type: unspecified constipation type Qualified Code(s): K59.00 - Constipation, unspecified (2) Worms in stool: Code(s): B83.9 - Helminthiasis, unspecified Plan Most likely constipation with a question of SBO, however pt had a BM yesterday plan - Plan includes ordering an abdominal x-ray to rule out obstruction and stool cultures to check for parasitic infection. - Continue with enemas as they provide some relief. - Diet as tolerated - Drink lots of fluids - Increase the fiber in her diet - will call with the results - needs to f/u with GI - also needs to f/u with PCP - Advised the ER if constipation persists, pain, etc Orders: Orders Ova and Parasite Today B83.9 - Helminthiasis, unspecified XR KUB Today K59.00 - Constipation, unspecified Coding Level of Care Code Est Pt Level 4 (43587) Diagnoses Constipation, unspecified constipation type K59.00 Constipation type: unspecified constipation type Worms in stool B83.9
--- OUTSIDE RECORDS SUMMARY | 2025-03-25 18:51 | XMS_ITS ---
Author Name [facility] Organization Unknown Care Team Organization Name Specialty Phone Email Start Date End Da valerie [facility] Keiry Sher Primary Care 01/10/2023 024
== END 2025-03-25 14:31 | disposition home or self-care (01) ==
PROVIDERS: PCP Internal Medicine; Visit Provider Physician Assistant Medical
DX: K59.00 Constipation, unspecified (principal); B83.9 Helminthiasis, unspecified

== ENCOUNTER 2025-03-25 13:22 | Outpatient (REF) | payer OTHER, SELFPAY ==
--- OUTSIDE RECORDS SUMMARY | 2025-03-22 13:00 | XMS_ITS | Encounter Summary ---
Author Organization [facility] Address [address] [place] [address] Care Team Providers Care Photo Printer Name Role Phone Keiry Sher MD Primary Care Provider [phone] Encounter Details Date Type Department Care Team (Latest Contact Info) Description 03/22/2025 1:00 PM EST Treatment Pelvic Floor Rehabilitation [address] [phone] Jud Solomon, PT [address] [place] [address] Outlet dysfunction constipation (Primary Dx); Myalgia of pelvic floor; Pelvic pain; Segmental and somatic dysfunction of pelvic region; Muscle weakness Social History Tobacco Use Types Packs/Day Years Used Date Smoking Tobacco: Former Cigarettes 0.5 43.9 S tarted: 05/06/1981 Smokeless Tobacco: Never Alcohol Use Standard Drinks/Week Comments Yes 0 (1 standard drink = 0.6 oz pur e alcohol) Housing Instability Answer Date Recorde d Are you worried that in the next 2 months you may not have stable housing? No 02/22/2025 Food Access & Nutrition Answer Date Rec orded Do you have access to a vari ety of food including fruits and vegetables? Yes 02/22/2025 Health Literacy Answer Date Recorded How often do you need to hav e someone help you when you read instructions, pamphlets, or other written material from your doctor or pharmacy? Never 02/22/2025 Caregiver: How often do you need to have someone help you when you read instructions, pamphlets, or other written material from your doctor or pharmacy? Not on file 02/22/2025 Financial Risk Answer Date Recorded How hard is it for you to pa y for the very basics like food, housing, medical care, and air conditioning / heating? Not very hard 02/22/2025 Transportation Answer Date Recorded Has the lack of transportati on kept you from meetings, work, or from getting things needed for daily living? No Has the lack of transportati on kept you from medical appointments or from getting medications? No 02/22/2025 Social Isolation Answer Date Recorded How often do you feel lonely or isolated from th ose around you? Never 02/22/2025 Food Risk Answer Date Recorded Within the past 12 months we worried whether our food would run out before we got money to buy more. Never true 02/22/2025 Within the past 12 months th e food we bought just didn't last and we didn't have money to get more. Never true 02/22/2025 Dependent Care Answer Date Recorded Do you need help finding or paying for care for your loved ones. For example, rn child or elderly care for an older adult? No 02/22/2025 Education Answer Date Recorded Do you think completing more education or training, like finishing a GED, going to college, or learning a trade, would be helpful for you? No 02/22/2025 Employment and Income Answer Date Recor ded During the last four weeks, have you been actively looking for work? No 02/22/2025 Living Situation Answer Date Recorded What is your living situation? Unrecognized valu e 02/22/2025 Comments No Sex and Gender Information Value Date Recorded Sex Assigned at Female 03/24/2025 3:06 PM EST Legal Sex Female 12:50 AM EST Gender Identity Female 03/24/2025 3:06 PM EST Sexual Orientation Straight 03/24/2025 3: 06 PM EST documented as of this encounter Progress Notes * Jud Solomon, PT - 03/22/2025 1:00 PM EST PELVIC FLOOR PHYSICAL THERAPY TREATMENT NOTE PATIENT: Becka Vargas : 1970 VISIT DATE: 03/22/25 VISIT NUMBER: 5 MEDICAL/SURGICAL HISTORY: Past Medical History: No date: ADHD Comment: DX:ADHD No date: Anxiety disorder Comment: DX:Anxiety disorder No date: Depression Comment: DX:Depression No date: Fibromyalgia Comment: DX:Fibromyalgia No date: Learning disability Comment: DX:Learning disability; COMMENT: discalcula No date: Lupus (systemic lupus erythematosus) ([facility] V24, [facility] V28) Comment: DX:Lupus (systemic lupus erythematosus) ([facility]) No date: PTSD (post-traumatic stress disorder) Comment: DX:PTSD (post-traumatic stress disorder) No date: Rheumatoid arthritis ([facility] V24, [facility] V28) Comment: DX:Rheumatoid arthritis ([facility]) No date: Sjogren's syndrome ([facility] V24) Comment: DX:Sjogren's syndrome ([facility]) Surgical History[1] Allergies[2] MEDICATIONS: Medications Ordered Prior to Encounter[3] CHIEF COMPLAINT: Outlet dysfunction constipation, pelvic floor myalgia SUBJECTIVE Pt presenting in a CAM boot- recent second opinion from ortho revealed a talar fracture. She continues to report extreme discomfort d/t constipation - has been >3 weeks since her last BM. Tried a suppository 2 nights ago with negligible results. Endorses increased L hip pain secondary to use of CAM boot FUNCTIONAL/SYMPTOM UPDATE See above OBJECTIVE Increased mm tension through R>L glute, B T/L paraspinals, L>R QL Abdomen mildly distended but not firm INTERVENTIONS Self Care/Home Management (10 minutes) - Counseled pt on how use of a CAM boot can alter pelvic posture and gait mechanics, contributing further to low back and hip pain. Advised use of a shoe lift on her R foot to equalize leg lengths - Discussed the importance of evacuating the bowels. Recommended use of a Fleet enema (advised thatshe may require more than one) and bowel prep (mag citrate), but advised she go to the ED if no bowel movement by tomorrow. Pt in agreement Manual Therapy (30 minutes) - KT tape to abdominal wall along intestinal tract for improved blood flow and motility; instructions provided re: tape care and when to remove - STM to B T/L paraspinals, QL - Trigger point release to B gluteal mm and TFL - Pelvic D1/D2 mobilizations - Bowel massage for motility - Trigger point release as tolerated to the abdominal wall ASSESSMENT Becka presents today reporting she still has not had a bowel movement, making it over 3 weeks sinceher last. Strongly encouraged mag citrate and trying an enema to promote a bowel movement, but advised she go to the ED if she is not able to pass anything by tomorrow. Pt in agreement. Her profound constipation is likely contributing to pelvic floor hypertonicity, making bowel regulation very impor tant to her overall progress. Her presentation is further complicated by newly diagnosed L foot fracture, as asymmetry d/t CAM boot can also contribute to increased pelvic floor tension. Utilized manual therapies to help reduce tension through the back and abdominal wall to ease discomfort. Pt has an appt with a new GI in May to discuss her chronic constipation. Patient should continue to benefit from PT intervention to address impairments, improve function, and improve quality of life. PLAN Cont with nervous system and PF down-regulation, manual therapies PRN, constipation management, deep core/PF/pelvic stabilization A total of 40 minutes was spent dmyb-he-zsuk with the patient today. Jud Solomon, PT, DPT, PCES 03/22/25 [1] Past Surgical History: Procedure Laterality Date HYSTERECTOMY 04/2020 PROCEDURE: HISTORICAL HYSTERECTOMY; COMMENT: robotic OTHER SURGICAL HISTORY PROCEDURE: HISTORICAL UNSPECIFIED SURGERY; COMMENT: breast augmentation [2] Allergies Allergen Reactions Amoxicillin Nirmatrelvir-Ritonavir Hallucinations Penicillins Pilocarpine Other Rapid heart beat , Sulfa (Sulfonamide Antibiotics) [3] Current Outpatient Medications on File Prior to Visit Medication Sig Dispense Refill acyclovir (ZOVIRAX) 5 % ointment APPLY TOPICALLY EVERY 3 HOURS WHILE AWAKE. 15 g 1 betamethasone, augmented, (DIPROLENE-AF) 0.05 % cream PLEASE SEE ATTACHED FOR DETAILED DIRECTIONS calcipotriene (DOVONEX) 0.005 % cream APPLY TWICE DAILY TO THE HANDS NEEDED. CAN MIX WITH BETAMETHASONE. cholecalciferol (VITAMIN D-3) 25 mcg (1,000 unit) tablet Take 1,000 Units by mouth daily. clonazePAM (KlonoPIN) 0.5 mg tablet Take 0.5 mg by mouth 2 times daily. diclofenac (VOLTAREN) 75 mg EC tablet Take 1 tablet (75 mg total) by mouth 2 (two) times a day if needed (pain). Do not crush, chew, or split. 60 tablet 0 estradioL (ESTRACE) 0.01 % (0.1 mg/gram) vaginal cream Apply a pea-sized amount of cream with your fingertip to the vaginal canal every night for 2 weeks, then twice a week thereafter. 42.5 g 5 ibuprofen (ADVIL,MOTRIN) 800 mg tablet TAKE 1 TABLET BY MOUTH EVERY 8 HOURS NEEDED FOR PAIN FOR UP TO 40 DAYS. 60 tablet 0 PARoxetine (PAXIL) 40 mg tablet Take 1 tablet (40 mg total) by mouth 1 (one) time each day in the morning. valACYclovir (VALTREX) 1 gram tablet TAKE 1 TABLET BY MOUTH DAILY FOR 5 DAYS AT ONSET OF SYMPTOMS 5tablet 5 zolpidem (AMBIEN) 5 mg tablet Take 1 tablet (5 mg total) by mouth at bedtime. Max Daily Amount: 5 mg No current facility-administered medications on file prior to visit. documented in this encounter Plan of Treatment Upcoming Encounters Date Type Department Care Team (Late st Contact Info) Description 03/29/2025 2:00 PM EST Treatment Pelvic Floor Rehabilitation - [address] [phone] Jud Solomon, PT [address] [place] [address] 06/17/2025 3:00 PM EST Office Visit Adult Medicine [place] - [address] [phone] Keiry Sher MD [address] [place] [address] documented as of this encounter Visit Diagnoses Diagnosis Outlet dysfunction constipation- Primary Myalgia of pelvic floor Pelvic pain Segmental and somatic dysfunction of pelvic region Muscle weakness Muscle weakness (generalized) documented in this encounter Additional Health Concerns Assessment Noted Time PHQ-9 Depression Total Score: 0 02/23/20 25 3:09 PM EDT documented as of this encounter Care Teams Photo Printer Relationship Specialty Start Date End Date Keiry Sher MD [address] [place] [address] PCP - General Internal Medicine 04/12/24 documented as of this encounter
--- NOTE | ~2025-03-25 | XR_ITS ---
EXAMINATION: XR ABDOMEN KUB CLINICAL INDICATION: K59.00 - Constipation, unspecified COMPARISON: None available. TECHNIQUE: AP view of the abdomen. FINDINGS: Nonobstructive bowel gas pattern. Large volume stool burden in the large colon. No gross free air. No suspicious soft tissue calcification. Lung bases are clear. XR/XR KUB IMPRESSION: Large volume stool burden in the large colon. Electronically signed by: Steven Castrejon MD 03/25/2025 02:43 PM EST
--- OUTSIDE RECORDS SUMMARY | 2025-03-25 19:32 | XMS_ITS | Clinical Summary ---
Author Organization [address] Address [address] [place] [phone] Phone Care Team Providers Care Hoof And Shoe Inspector Name Role Phone Keiry Sher MD Primary Care Provider [phone] Allergies Active Allergy Reactions Criticality Noted Date Comments Amoxicillin 03/20/2017 Nirmatrelvir-Ritonavir Hallucinations 3 Penicillins 03/20/2017 [place] Other 02/18/2024 Rapid heart beat , Sulfa (Sulfonamide Antibiotics) 03/20/2017 Medications betamethasone, augmented, (DIPROLENE-AF) 0.05 % cream PLEASE SEE ATTACHED FOR DETAILED DIRECTIONS 07/29/19 24 Active calcipotriene (DOVONEX) 0.005 % cream APPLY TWICE DAILY TO THE HANDS NEEDED. CAN MIX WITH BETAMETHASONE. 07/29/19 24 Active cholecalcifero l (VITAMIN D-3) 25 mcg (1,000 unit) tablet Take 1,000 Units by mouth daily. Active clonazePAM (KlonoPIN) 0.5 mg tablet Take 0.5 mg by mouth 2 times daily. Active PARoxetine (PAXIL) 40 mg tablet Take 1 tablet (40 mg total) by mouth 1 (one) time each day in the morning. Active zolpidem (AMBIEN) 5 mg tablet Take 1 tablet (5 mg total) by mouth at bedtime. Max Daily Amount: 5 mg 09/30/19 25 Active valACYclovir (VALTREX) 1 gram tablet TAKE 1 TABLET BY MOUTH DAILY FOR 5 DAYS AT ONSET OF SYMPTOMS 5 tablet 5 12/17/19 25 Active ibuprofen (ADVIL,MOTRIN) 800 mg tablet TAKE 1 TABLET BY MOUTH EVERY 8 HOURS NEEDED FOR PAIN FOR UP TO 40 DAYS. 60 tablet 01/16/20 25 Active estradioL (ESTRACE) 0.01 % (0.1 mg/gram) vaginal creamIndicatio ns:atrophic vaginitis associated with menopause Apply a pea-sized amount of cream with your fingertip to the vaginal canal every night for 2 weeks, then twice a week thereafter. 42.5 g 5 02/10/20 25 Active acyclovir (ZOVIRAX) 5 % ointment APPLY TOPICALLY EVERY 3 HOURS WHILE AWAKE. 15 g 1 03/04/20 25 Active diclofenac (VOLTAREN) 75 mg EC tablet Take 1 tablet (75 mg total) by mouth 2 (two) times a day if needed (pain). Do not crush, chew, or split. 60 tablet 03/02/20 25 025 Active acyclovir (ZOVIRAX) 5 % ointment APPLY TOPICALLY EVERY 3 HOURS WHILE AWAKE. 15 g 11/24/19 25 025 Discontinued Active Problems Problem Noted Date Diagnosed Date Pelvic pain 09/22/2024 Assessment & Plan (09/22/2024 4:38 PM EDT): Likely secondary to chronic constipation. No evidence of Preschool Teacher Assistant etiology. Recommended she start mag oxide supplement to help and follow up with GI. Vaginal odor 09/22/2024 Assessment & Plan (09/22/2024 4:38 PM EDT): Will send infectious testing, but no evidence on microscopy. Will treat prn. I believe this is related to atrophy. Also likely the cause of rust colored discharge. Vaginal atrophy 09/22/2024 Assessment & Plan (09/22/2024 4:39 PM EDT): Discussed findings. I recommended pt treat with estrogen cream which should be applied with her finger at the introitus nightly x 2 weeks, then MWF for maintenance. I reviewed amount and area of application and need for ongoing use for effect. I reviewed relative safety of topical localized estradiol therapy. She declines, but would be open to trying coconut oil. ADHD 12/04/2022 Learning disability 12/04/2022 Overview (03/19/2024): discalcula Anxiety disorder 12/04/2022 PTSD (post-traumatic stress disorder) 12/04/2022 B12 deficiency 12/04/2022 Depression 12/04/2022 Fibromyalgia 12/04/2022 Lupus (systemic lupus erythe matosus) ([facility] V24, [facility] V28) 12/04/2022 Rheumatoid arthritis ([facility] V24, [facility] V28) 12/04/2022 Sjogren's syndrome ([facility] V24) 12/04/2022 Vitamin D deficiency 12/04/2022 Encounters Date Type Department Care Team Description 03/22/2025 1:00 PM EST Treatment Pelvic Floor Rehabilitation [address] [phone] NehaTricia rodrigueza, PT Outlet dysfunction constipation (Primary Dx); Myalgia of pelvic floor; Pelvic pain; Segmental and somatic dysfunction of pelvic region; Muscle weakness 03/15/2025 2:00 PM EST Treatment Pelvic Floor [address] [phone] Neha, Jud, PT Outlet dysfunction constipation (Primary Dx); Myalgia of pelvic floor; Pelvic pain; Segmental and somatic dysfunction of pelvic region; Muscle weakness 03/08/2025 2:00 PM EST Treatment Pelvic Floor [address] [phone] Neha, Jud, PT Outlet dysfunction constipation (Primary Dx); Myalgia of pelvic floor; Pelvic pain; Segmental and somatic dysfunction of pelvic region; Muscle weakness 02/22/2025 3:30 PM EDT Office Visit Adult Medicine [address] [phone] Jase Malcolm PA Left foot pain (Primary Dx) 02/22/2025 1:00 PM EDT Treatment Pelvic Floor [address] [phone] Neha, Jud, PT Outlet dysfunction constipation (Primary Dx); Myalgia of pelvic floor; Pelvic pain; Segmental and somatic dysfunction of pelvic region; Muscle weakness 02/18/2025 Telephone Adult Medicine [place] - [address] [phone] Barbie Kiryb RN 02/15/2025 3:00 PM EDT Treatment Pelvic Floor Rehabilitation - [address] [phone] Jud Solomon PT Outlet dysfunction constipation (Primary Dx); Myalgia of pelvic floor; Pelvic pain; Segmental and somatic dysfunction of pelvic region; Muscle weakness 02/09/2025 2:00 PM EDT Office Visit Urogynecology - [address] [phone] Marissa Cowan MD Slow transit constipation (Primary Dx); Rectocele; Outlet dysfunction constipation; Myalgia of pelvic floor 01/13/2025 Telephone Lung Screening Program - [address] [phone] Tita Lorenzana MA from Last 3 Months Surgical History Surgery Date Site/Laterality Comments HYSTERECTOMY 04/2020 PROCEDURE: HISTORICAL HYSTERECTOMY; COMMENT: robotic OTHER SURGICAL HISTORY PROCEDURE: HISTORICAL UNSPECIFIED SURGERY; COMMENT: breast augmentation Medical History Medical History Date Comments Anxiety disorder DX:Anxiety diso rder PTSD (post-traumatic stress disorder) DX:PTSD (post-traumatic stress disorder) Depression DX:Depression Adhd DX:ADHD Lupus (systemic lupus erythe matosus) ([facility] V24, [facility] V28) DX:Lupus (systemic lupus er ythematosus) ([facility]) Fibromyalgia DX:Fibromyalgia Sjogren's syndrome ([facility] V24) DX:Sjogren's syndrome ([facility]) Learning disability DX:Learning disability; COMMENT: discalcula Rheumatoid arthritis ([facility] V24, [facility] V28) DX:Rheumatoid arthritis ([facility] ) Family History Medical History Relation Name Comments [...] 43.9 S tarted: 05/06/1981 Smokeless Tobacco: Never Tobacco Cessation:Counseling Given: Not Answered Alcohol Use Standard Drinks/Week Comments Yes 0 [...] care for your loved ones. For example, childcare attendant or elderly care for an older adult? [...] Orientation Straight 03/24/2025 3: 06 PM EST Obstetrics History * This document contains information received from the source organization and may not represent a complete record from that organization. Para Term AB IAB SAB Ectopic Multiple Livin g Live Births 8 2 0 0 0 0 2 0 Date Outcome GA Total Labor Labor/2nd/3rd Weight Sex Type Anes PTL Martita A1 A5 Name Clin Para Para Last Filed Vital Signs Vital Sign Reading Time Taken Comments Blood Pressure 119/78 02/22/2025 3:11 PM EDT Pulse 89 02/22/2025 3:11 PM EDT Temperature 35.7 C (96.2 F) 02/22/2025 3:11 PM EDT Respiratory Rate 12 02/22/2025 3:11 PM EDT Oxygen Saturation 96% 02/22/2025 3:11 PM EDT Inhaled Oxygen Concentration - - Weight 57 kg (125 lb 9.6 oz) 02/22/2025 3:11 PM EDT Height 157.5 cm (5' 2 ) 02/22/2025 3:11 PM EDT Body Mass Index 22.97 02/22/2025 3:11 PM EDT Plan of Treatment Upcoming Encounters Date Type Department Care Team (Late st Contact Info) Description 03/29/2025 2:00 PM EST Treatment Pelvic Floor Rehabilitation - [address] [phone] Jud Solomon, PT [address] [place] [address] 06/17/2025 3:00 PM EST Office Visit Adult Medicine [place] - [address] [phone] Keiry Sher MD [address] [place] [phone] Health Maintenance Due Date Last Done Comments Breast Cancer Screening 1970 Colorectal Cancer Screening: Colonoscopy 1970 DTaP,Tdap,and Td Vaccines (1 - Tdap) 1990 Hepatitis B Vaccines (1 of 3 - 19+ 3-dose series) 1990 Cervical Cancer Screening: Pap Smear 03/21/2020 03/21/2017, 03/21/2017 Pneumococcal Vaccine: 50+ Years (1 of 1 - PCV) 2021 Zoster Vaccines (1 of 2) 2021 HIV Screening 04/08/2022 Hepatitis C Screening 04/08/2022 COVID-19 Vaccine (1 - 2024-2 6 season) 2025 Influenza Vaccine (#1) 2025 Postp oned from 01/04/2025 (Patient Refused) Social Influencers of Health Screening 02/22/2026 02/22/2025 Cholesterol Screening (Lipid Panel) 12/05/2027 12/04/2022 RSV Immunization Adult Patients (1 - 1-dose 75+ series) 2046 Lung Cancer Screening (Low Dose CT) Discontinued 01/23/2024, 01/22/2024 Depression Screening Completed 02/22/2025, 12/02/2023 HIB Vaccines Aged Out No longer eligi [...] patient's age to complete this topic Meningococcal B Vaccine Aged Out No l onger eligible based on patient's age to complete [...] PM EDT Narrative 01/23/2024 1:41 PM EDT [facility] Diagnostic Imaging Department [address] [place], [place] [id number] Patient: BECKA JIMENEZ /Age/Sex: 1970 - 53 - F Unit#: [id number] [facility]Ordering Site: [facility] Ordering Physician: FRANCI ROBERTS MD CT Lung Screening Low Dose - 01/22/24 - 1416 Report Status:Signed Chest CT, 01/23/2024 12:23 PM. TECHNIQUE: Low-dose CT of the chest without intravenous contrast administration. Coronal and sagittal reformats and MIP reconstructions were created. Dose length product: 112 mGy-cm. HISTORY: LOW DOSE LUNG SCREENING COMPARISON: 03/03/2018. FINDINGS: Lungs/pleura: Central airways are clear and normal in caliber. No endobronchial nodule. There are a few scattered 1--2 mm calcified and noncalcified pulmonary nodules. No suspicious nodule or mass. No pleural effusion or pneumothorax. Mediastinum/theron: No mediastinal mass or lymphadenopathy. No appreciable hilar lymphadenopathy on limited noncontrast evaluation. Vasculature: Minimal atherosclerotic calcifications. Normal caliber pulmonary arteries. Cardiac: Normal. No coronary artery calcification. Chest wall: Breast implants. Limited abdomen: Normal. Bones: Mild degenerative changes of the spine. IMPRESSION: Lung RADS 2. Guidelines recommend repeat low-dose screening CT in 12 months. Dictating Physician: ELMER GUAJARDO MD Electronically Signed by: ELMER GUAJARDO MD Dic Date/Time: 01/23/24 1223 Sign date/Time: 01/23/24 1341 Procedure Note Elmer Guajardo MD - 02/19/2024 [facility] Diagnostic Imaging Department [address] [place] [address] Patient: BECKA JIMENEZ /Age/Sex: 1970 - 53 - F Unit#: [id number] Location/Status: SPDICATLS/REG CLI Mnemonic/Ordering Site: [facility] Ordering Physician: FRANCI ROBERTS MD CT Lung Screening Low Dose [...] low-dose screening CT in 12months. Dictating Physician: ELMER GUAJARDO MD Electronically Signed by: ELMER GUAJARDO MD Dic Date/Time: 01/23/24 1223 Sign date/Time: 01/23/24 1341 Result [facility] Franci Roberts MD IMG CT PROCEDURES Final Result * Depression Screening (12/02/2023) [facility] Depression Screening abstracted Result [facility] Provider HEALTH MAINTENANCE Final Result * (ABNORMAL) Lipid panel (12/04/2022) [facility] LDL/HDL Ratio 4 0 - 4 Triglycerides 138 0 - 150 mg/dL Cholesterol 204(A) 0 - 200 mg/dL HDL 58 >=40 mg/dL LDL Cholesterol 119(A) 0 - 100 mg/dL Blood Venous blood specimen / Unknown Result [facility] Historical Provider LAB BLOOD ORDERABLES Pamela l Result * Cervical Cancer Screening: HPV (03/21/2017) Pathologist [facility] Cervical Cancer Screening: HPV negative, abstracted Result [facility] Maile [place] HEALTH MAINTENANCE Final Result from Last 3 Months or Most Recently Relevant to Health Maintenance Insurance [facility] PLAN Care Teams Hoof And Shoe Inspector Relationship Specialty Start Date End Date Keiry Sher MD [address] [place] [phone] PCP - General Internal Medicine 04/12/24
== END 2025-03-25 13:23 | disposition home or self-care (01) ==
LOC: HO.HMGCX 13:22
PROVIDERS: PCP Internal Medicine; Visit Provider Physician Assistant Medical
DX: K59.00 Constipation, unspecified (principal); B83.9 Helminthiasis, unspecified
CPT/HCPCS: 74018; 99212

== ENCOUNTER 2025-03-26 11:35 | Outpatient (REF) | payer OTHER, SELFPAY | END 2025-03-26 11:36 | disposition home or self-care (01) | LOC: HO.HMGCLNP 11:35 | PROVIDERS: PCP Internal Medicine; Visit Provider Physician Assistant Medical | DX: B83.9 Helminthiasis, unspecified (principal) | CPT/HCPCS: 87177; 87209 ==